=== PATIENT | female | born 1960 | race Caucasian/White ===

== ENCOUNTER 2022-10-03 13:08 | Observation (INO) | payer SELFPAY ==
[2022-10-03] VITALS (10 sets, daily range): BP systolic 131–160; BP diastolic 71–106; PULSE 64–77; RESP 14–18; TEMP 35.7–36.7; O2SAT 97–100; BMI 26.4
--- NOTE | 2022-10-03 | AXNB_PTH ---
PATIENT: ALESIA BOLDEN LOC: MS3 U#:[id number] AGE/SX: 62/F ROOM: VA319 RE10/03/[address]: Dr. Ap Gaytan MD : 1960 BED: 1 DIS: 10/04/2022 SPEC #: [id number] RECD: 10/03/22 12:01 STATUS: LUCAS TAMIA #: [id number] HOANG: 10/03/22 00:[address]: Ap Gaytan DEPT: SURGICAL PATHOLOGY RECD BY: Alena Melgoza ENTERED: 10/03/22 13:00 SP TYPE: AX NODE BX OTHR DR: Elizabeth Jack, SOL[employer]ATION [employer]W SUPERVISOR-C Tissues: A - Axillary lymph node, NOS B - Right breast, NOS Procedures: Frozen Section (charge) Frozen Section [facility] ([facility]) Surgery Specimen Level V Surgery Specimen Level HEADER OPERATION: Simple mastectomy with sentinel lymph node biopsy PRE-OP DIAGNOSIS: Right breast cancer TISSUE SUBMITTED: A ? [place] lymph nodes, frozen section, B ? Right breast, long suture ? lateral, short suture ? superior and extra tissue FROZEN SECTION DIAGNOSIS A. Right sentinel lymph nodes, biopsy: Eight out of eight lymph nodes, negative for metastatic carcinoma. SJ:jeimy 10/03/2022 Case has been reviewed in consultation with Dr. Borja who concurs with the above diagnosis. IDC:AM MICROSCOPIC DIAGNOSIS A. Right sentinel lymph nodes, biopsy: Eight out of eight lymph nodes, negative for metastatic carcinoma. See comment. B. Right breast, mastectomy with additional lymph node dissection: Invasive ductal carcinoma, multifocal (x6). Two out of two lymph nodes, negative for metastatic carcinoma. See cancer summary in the comment section. SJ:jeimy 10/10/2022 COMMENT A & B. The lymph nodes are negative for metastatic carcinoma on multiple H & E levels and immunohisto-chemical stains for cytokeratins ([id number]). B. BREAST CANCER SUMMARY Procedure ? total mastectomy Specimen laterality - right Tumor site ? central portion Tumor size ? Size of largest metastatic carcinoma 3.0 x 3.0 x 1.2 cm Histologic type ? Invasive ductal carcinoma with focal lobular features. Histologic grade (Duran grade): Glandular/tubular differentiation score - 3 Nuclear pleomorphism score - 2 Mitotic count score - 1 Overall grade - grade 2 (score of 6) Tumor focality ? multiple foci of invasive carcinoma. All tumors show similar morphologic features. Number of foci ? 6 including largest tumor Size of individual foci ? largest measuring 3.0 x 3.0 x 1.2 cm Second largest - 2.5 x 1.5 x 1.5 cm Third mass - 0.8 cm in greatest dimension. Fourth mass - 0.6 cm in greatest dimension. Fifth mass - 0.4 cm in greatest dimension. Six mass (block 15), indurated and fibrous area measures 1.0 x 0.5 cm (measured microscopically). Frequent perineural invasion is noted adjacent to the larger two tumor masses. Ductal carcinoma in situ - present Negative for extensive intraductal component (EIC). Size (extent) of DCIS ? DCIS comprise <5% of total tumor volume. Number of blocks with DCIS - ~7 Number of blocks examined ? 20 Architectural pattern ? solid Nuclear grade ? 2 Necrosis ? not identified Lobular carcinoma in situ ? present Lobular carcinoma in situ is noted adjacent to the foci of invasive ductal carcinoma. Tumor extension: Skin ? skin is present and uninvolved. Nipple ? DCIS does not involve nipple epidermis. Skeletal muscle ? no skeletal muscle present. Margins - The largest tumor is 0.2 cm away from the closest inferior margin. Regional lymph nodes: Total number of lymph nodes examined - 10 Number of sentinel lymph nodes examined - 8 Number of lymph nodes with macrometastases, micrometastases or isolated tumor cells - 0 Treatment effect - no known presurgical therapy. Lymphvascular invasion ? not identified Dermal lymphvascular invasion - not identified Distant metastasis ? not applicable Additional Pathologic Findings ? - Extensive atypical lobular hyperplasia ( noted adjacent to the invasive carcinoma foci). - Fibrocystic changes and intraductal hyperplasia without atypia. - Fibroadenoma (0.4 cm in greatest dimension). - A benign glandular inclusion cyst adjacent to the large lymph node in the lateral portion of the mastectomy specimen (B), consistent with apocrine hidrocystoma. Ancillary Studies: Previously performed at [facility] ([id number]), right breast at 8-9 o?clock Z3 mass. ER: Positive (95%, strong intensity) UT: Positive (60%, strong intensity) [id number]: Pending [id number]: Pending Right breast, 12 o?clock Z3 mass ER: Positive (100%, strong intensity) UT: Positive (85%, strong intensity) [id number]: Pending [id number]: Pending Microcalcifications ? Present in DCIS and non-neoplastic tissue. Clinical History - Please make reference to previous specimen from [facility] ([id number]), right breast, 8-9 o?clock Z3 mass, ultrasound-guided core needle biopsy with diagnosis of ?invasive ductal carcinoma with lobular features, grade 2 and ductal carcinoma in situ? and right breast, 12 o?clock Z3 mass, ultrasound-guided core needle biopsy with diagnosis of ?invasive ductal carcinoma, grade 1? and right axilla, inferior lymph node, ultrasound-guided core needle biopsy with diagnosis of ?lymph node tissue, negative for carcinoma.? PATHOLOGIC STAGE: pT2(m) pN0 pMx Immunohistochemistry ([id number]) supports the diagnosis of invasive ductal carcinoma, ductal carcinoma in situ, lobular carcinoma in situ and atypical lobular hyperplasia. The above summary is in compliance with [employer] [place] Pathology (CAP) Cancer Protocols Checklist and [place] Joint Committee on Cancer (AJCC), Staging Manual, 8th Ed. B. Immunohistochemistry ([id number]) supports the diagnosis of invasive ductal carcinoma, ductal carcinoma in situ and lobular carcinoma in situ and atypical lobular hyperplasia. This case is discussed with Dr. Gaytan on 10/10/22. Case has been reviewed in consultation with Dr. Borja who concurs with the above diagnosis. IDC:AM MICROSCOPIC DESCRIPTION Slides are reviewed. GROSS DESCRIPTION A - Received fresh for frozen section diagnosis labeled with the patient's name is a specimen designated sentinel lymph nodes. The specimen consists of a piece of adipose tissue containing multiple nodules consistent with lymph nodes. Eight lymph nodes are identified measuring 0.5 to 2.5 cm in greatest dimension. The lymph nodes are submitted in entirety for frozen section diagnosis as follows: 1 - three lymph nodes, 2 - one bisected lymph node, 3 - three lymph nodes, 4 & 5 - one bisected lymph node, largest lymph node. / SJ: 10/03/2022 B - Received in fixative is one container labeled with the patient's name and designated right breast, long suture - lateral, short suture - superior and extra tissue. The specimen consists of a mastectomy specimen consisting of breast tissue with overlying skin ellipse. The breast tissue measures 22.0 x 16.0 x 4.0 cm. The overlying skin ellipse measures 19.0 x 4.5 cm. The nipple measures up to 1.2 cm in greatest dimension. Also present in the container are two pieces of skin with underlying breast tissue. The first piece, skin measures 16.5 x 1.5 cm and underlying tissue measures 15.5 x 3.5 x 1.0 cm. The second piece, the skin measures 5.5 x 0.5 cm and underlying tissue measures 8.0 x 4.0 x 1.0 cm. The specimen is inked as follows: posterior - black, superior - blue, inferior - green, medial - red and lateral - orange. More dictation will follow after fixation. / SJ: 10/03/2022 Serial sections reveal five indurated masses. The largest mass present in the lower central portion measures 3.0 x 3.0 x 1.2 cm. This mass is 0.2 cm away from the closest inferior margin. The next closest margin from this tumor is the posterior margin which is 1.0 cm away. A second mass is present close more centrally and measures 2.5 x 1.5 x 1.5 cm. This mass is 1.0 cm away from the closest posterior margin. A third mass measures 0.8 cm in greatest dimension and present in the same vicinity of the other two tumors. A fourth mass measures 0.6 cm in greatest dimension. The fifth tumor mass measures 0.4 cm in greatest dimension. Sections of the rest of the breast tissue reveal yellow adipose cut surfaces with fibrous areas. A focal indurated and fibrous suspicious area is also noted. Sections of the lateral portion of breast reveal an ovoid nodule, a lymph node, measuring 1.5 cm in greatest dimension. Barrel Raiser Helper sections are submitted in 20 cassettes as follows: 1??nipple, entire submitted, 2 - perpendicular medial, lateral and superior margins, 3 - perpendicular posterior margin and tumor with closest inferior margin, 4-7 - tumor #1, 8-11 - tumor #2, 12 - tumor #3 bisected, 13 - tumor #4 bisected, 14 - tumor #5, 15 - indurated and fibrous area, 16-18 - Barrel Raiser Helper sections from the other area, 19??one possible lymph node, 20 - one bisected lymph node. Sections are submitted after additional fixation. / SJ:rg 10/04/2022 TC:0 CPT: 52449, 20962, 58145, 95996 x4 ADDENDUM ADDENDUM ADDENDUM ADDENDUM ADDENDUM ADDENDUM ADDENDUM ADDENDUM 11/07/2022 10:12 ADDENDUM 11/07/2022 10:12 ADDENDUM 11/07/2022 10:12 ADDENDUM 11/07/2022 10:12 ADDENDUM 11/07/2022 10:12 An order for Oncotype testing was received from Dr. Luciano. This necessitated case review, block and slide selection by pathologist at [facility]. Breast Cancer Recurrence Score = 18 Results of the complete Oncotype testing ([employer] report) are viewable in EMR under: Reports - Pathology - Lab Pathology Report, Scanned.
--- NOTE | 2022-10-03 | IMM_PTH ---
PATIENT: ALESIA BOLDEN LOC: MS3 U#:[id number] AGE/SX: 62/F ROOM: MS319 RE10/03/[address]: Dr. Ap Gaytan MD : 1960 BED: 1 DIS: 10/04/2022 SPEC #: [id number] RECD: 10/06/22 13:48 STATUS: LUCAS CHESTERИван #: [id number] HOANG: 10/03/22 00:[address]: Ap Gaytan DEPT: IMMUNOHISTOCHEMISTRY RECD BY: Alena Melgoza ENTERED: 10/06/22 13:51 SP TYPE: IMMUNO OTHR DR: Elizabeth Jack, POT PUNCHER-C Tissues: A - Axillary lymph node, NOS B - Right breast, NOS Procedures: CALPONIN-1 (add) CK7 (add) CK8 (add) E-CAD (add) Pankeratin (initial) Pankeratin (add) P40 (add) PHYSICIAN & [address] [address] SPECIMEN INFORMATION: Tissue Source: A ? [place] lymph nodes, B ? Right breast Clinical Info: Right breast cancer Specimen Number: [id number] A1-A5, B6, B11-B15, B19 & B20 CPT code: 30775 x2, 94733 x36 METHODOLOGY: Deparaffinized sections of prefer/formalin-fixed tissue or PAP/DQ stained slides are incubated with monoclonal/polyclonal antibodies/oligonucleotide probes. Localization is made via biotin free immunoperoxidase method. Appropriate controls are performed and reacted as expected. Results on target cell population are indicated in the following table: RESULTS: ANTIBODY / CLONE RESULT Block A1 AE1-3 (AE1/AE3/PCK26) negative CK7 (OV-TL12/30) negative Block A2 AE1-3 (AE1/AE3/PCK26) negative CK7 (OV-TL12/30) negative Block A3 AE1-3 (AE1/AE3/PCK26) negative CK7 (OV-TL12/30) negative Block A4 AE1-3 (AE1/AE3/PCK26) negative CK7 (OV-TL12/30) negative Block A5 AE1-3 (AE1/AE3/PCK26) negative CK7 (OV-TL12/30) negative Block B6 Calponin-1 (RQ714Y) negative * P40 (BC28) negative * E-Cad (ECH-6) positive CK8 (82nygnB88) positive Block B11 Calponin-1 (UY323C) negative * P40 (BC28) negative * E-Cad (ECH-6) positive * CK8 (37tmepK73) positive * Block B12 Calponin-1 (VK630S) negative, * P40 (BC28) negative * E-Cad (ECH-6) positive CK8 (09yqcbK33) positive Block B13 Calponin-1 (GV251C) positive * P40 (BC28) negative * E-Cad (ECH-6) positive CK8 (07umbmM09) positve Block B14 Calponin-1 (BA753E) negative * P40 (BC28) negative * E-Cad (ECH-6) positive CK8 (15jsoaN42) positive Block B15 Calponin-1 (VT136Z) negative * P40 (BC28) negative * E-Cad (ECH-6) positive CK8 (02qwtlP26) positive Block B19 AE1-3 (AE1/AE3/PCK26) negative CK7 (OV-TL12/30) negative Block B20 AE1-3 (AE1/AE3/PCK26) negative CK7 (OV-TL12/30) negative *?Positive in the area of ductal carcinoma in situ, lobular carcinoma in situ and atypical lobular hyperplasia. Negative in the area of lobular carcinoma in situ and atypical lobular hyperplasia. These tests were developed and their performance characteristics determined by [facility]. They may not have been cleared or approved by the U.S. Food and Drug Administration. The FDA has determined that such clearance or approval is not necessary. The above immunohistochemical/dualISH markers are ordered and reviewed by the Pathologist. INTERPRETATION: A. Right sentinel lymph nodes, biopsy: Eight out of eight lymph nodes, negative for metastatic carcinoma. B. Right breast, mastectomy: Invasive ductal carcinoma. Ductal carcinoma in situ. Lobular carcinoma in situ. Atypical lobular hyperplasia. Two out of two lymph nodes, negative for metastatic carcinoma. SJ:jeimy 10/10/2022
--- NOTE | 2022-10-03 09:00 | NM_ITS ---
PROCEDURE: NUCLEAR MEDICINE Injection [place] Node - RIGHT breast(s). REASON FOR EXAM: Female, 62 years old. Right breast cancer. TECHNIQUE: [place] node localization using radionuclide methods of the RIGHT breast(s) was performed following subcutaneous administration of 1.1 mCi of of sulfur colloid Tc-99m. COMPARISON STUDIES : NM - None. CR - Not available for review at this time. CT - Not available for review at this time. MR - Not available for review at this time. US - Not available for review at this time. FINDINGS: 1.1 mCi of technetium labeled sulfur colloid was injected subcutaneously in the right periareolar region for sentinel node imaging. NM/Lymph Node Injection Only IMPRESSION: Subcutaneous injection of sulfur colloid in the periareolar region for sentinel node imaging. Electronically Signed: Willy Raines MD at 10:40 EDT ,
[2022-10-03] MEDS: Lactated Ringers 1,000 ML 15 ML IV (09:40)
[2022-10-03 10:07] LABS: Anion Gap 7 (5-15); BUN 11 mg/dL (7-18); BUN/Creat Ratio 14.3 RATIO (10-20); Calcium,Total 9.5 mg/dL (8.5-10.1); Chloride 105 mmol/L (98-107); Creatinine, Serum 0.77 mg/dL (0.55-1.02); EST Glomerular Filtration Rate 80 mL/min (>60); Est Glom Filt Rate - Afr Amer 97 mL/min (>60); Estimated Creatinine Clearance 78.15 ml/min; Glucose 119 mg/dL (74-106); Potassium 3.7 mmol/L (3.5-5.1); Sodium Level 138 mmol/L (136-145); Thyroid Stim Hormone (TSH) 2.18 uIU/mL (0.358-3.74)
--- NOTE | 2022-10-03 10:46 | PCM.HP.BLA ---
History and Physical Date of Admission: 10/03/22 Intake Vital Signs ? 09/23/2313:13 Weight: 180 lb 8 oz BP 159/96 H Blood Pressure Location Rt brachial Position Sitting Respiration 17 Pulse 83 Pulse Source Monitor Temp 97.5 F L Temp Source Temporal Pulse Oximetry (%) 100 Oxygen Delivery Method room air Intake Visit Reasons:?R BREAST INVASIVE DUCTAL CARCINOMA Chief Complaint: right breast invasive ductal carcinoma Is patient in pain?: No Allergies No Known Allergies Allergy (Verified 09/28/22 12:56) Medications hydrochlorothiazide 12.5 mg capsule 12.5 mg PO DAILY 09/23/22 [History Confirmed 09/28/22] levothyroxine 75 mcg capsule 75 mcg PO DAILY 09/23/22 [History Confirmed 09/28/22] metoprolol succinate 25 mg tablet,extended release 24 hr 12.5 mg PO BID 09/23/22 [History Confirmed 09/28/22] Theramineral 1 tab PO/SL DAILY 09/28/22 [History Confirmed 09/28/22] cholecalciferol (vitamin D3) 25 mcg (1,000 unit) chewable tablet (Vitamin D3) 25 mcg PO DAILY 09/28/22 [History Confirmed 09/28/22] multivit,stress formula-zinc tablet 1 tab PO DAILY 09/28/22 [History Confirmed 09/28/22] omega3-calcium 1,000 mg-D3 800 unit-folic ac 2.5 mg-mv oral combo pack 1 pkg PO DAILY 09/28/22 [History Confirmed 09/28/22] PFSH Medical History?(Updated 09/29/22 @ 13:[address] Ap Gaytan MD) Anxiety Cancer History of edema History of irregular heartbeat Hypertension Non-smoker Thyroid disease Varicose veins of left lower extremity Wears glasses Surgical History?(Updated 09/28/22 @ 13:08 by Mily Germain) History of Family History?(Updated 09/23/22 @ 14:13 by Sarah Cuevas) Mother Breast cancerSister Breast cancer Social History?(Updated 09/23/22 @ 14:13 by Sarah Cuevas) Smoking Status:? Never smoker alcohol intake:? never substance use type:? does not use HPI HPI HPI: Patient is a 62-year-old female with right breast cancer.? Patient had biopsy of 2 breast masses at an outside hospital.? 1 breast mass showed DCIS the other breast mass showed invasive ductal carcinoma. ROS General General: Yes breast cancer; No weight change, appetite, fatigue, colon cancer or weakness HEENT HEENT: No difficulty swallowing, eye injury, eye surgery, swollen glands or hoarseness Endo Endocrine: No thyroid disease, diabetes mellitus, thyroid cancer, Hair loss, heat intolerance or cold intolerance Skin Skin: No rash or changing moles Breast Breast: Yes abnormal mammogram and abnormal US; No left breast lump, right breast lump, nipple discharge, breast pain or breast enlargement Musc Musculoskeletal: No back problems, arthritis, rheumatoid arthritis, gout or joint pain Cardio Cardiovascular: Yes high blood pressure; No murmur, pacemaker, heart disease, atrial fibrillation, heart attack, heart stent, palpitations, shortness of breat with exertion or chest pain Psych Psychiatric: Yes anxiety; No depression or hearing voices Resp Respiratory: No shortness of breath, No sleep apnea, No cough, No COPD, No asthma, No emphysema and No wheezing Gastro Gastrointestinal: No abdominal pain, No nausea or vomiting, No diarrhea, No constipation, No blood in stool, No acid reflux, No hemorrhoids, No ulcers, No gallbladder problem and No black,tarry stools Stephen Hematologic: No blood thinners, No blood disorders, No bleeding, No anemia and No blood clots Neuro Neurologic: No system reviewed and no additional complaints, except as documented, No as per HPI, No abnormal gait, No abnormal hearing, No abnormal movements, No abnormal speech, No behavioral changes, No burning sensations, No confusion, No convulsions, No disequilibrium, No dizziness, No localized weakness, No frequent falls, No headache(s), No lack of coordination, No loss of vision, No memory loss, No numbness, No other visual disturbances, No radicular pain, No restless legs, No sensory deficit, No syncope, No tingling, No tremor(s), No weakness and No other Exam Const General: cooperative Orientation: alert and oriented x3 HENMT Head: normal to inspection Neck Neck: normal visual inspection and full ROM Chest Chest palpation & inspection: normal inspection of the chest Resp Effort & Inspection: normal respiratory effort Auscultation: clear to auscultation bilaterally Cardio Rate: regular rate Rhythm: regular rhythm GI Inspection: non-distended Palpation: soft and nontender Skin General: no rashes or lesions noted Neuro General: patient alert and patient oriented x3 Extrem General: full ROM Psych Appearance: grossly normal Mental Status: mental status grossly normal Assessment and Plan Assessment and Plan (1) Breast cancer, right: ?Status:?Acute ?Qualifiers: ?Breast location:?overlapping sites of breast??Estrogen receptor status:?positive??Patient sex:?female? Qualified Code(s):?C50.811 - Malignant neoplasm of overlapping sites of right female breast; Z17.0 - Estrogen receptor positive status [ER+] ?Plan: Patient has a right breast cancer and right breast DCIS that are in different areas of the breast.? I discussed right mastectomy with the patient.? I also discussed performing axillary lymph node biopsy.? She had axillary lymph node biopsy by ultrasound which was negative.? I discussed the need for possible axillary dissection.? I discussed the risks of the procedure such as bleeding, infection, positive margins or need for further surgery.? I discussed seroma formation and the need for drains.? I discussed hospital stay overnight.? I also discussed the risk of lymphedema if axillary dissection is necessary.? All questions were answered and patient is in agreement to proceed Ap Gaytan MD Pager: [facility] [address] [place] [address] [address] [place] [address] Office: I have examined the patient and the H&P has been reviewed. There are no clinical changes since date of exam.
[2022-10-03] MEDS: Cefazolin 2 GM in 0.9% Normal Saline 100 ML IV (11:08)
[2022-10-03] MEDS: 0.9% Normal Saline (Pres. free 10 ML Vial (11:15)
[2022-10-03] MEDS: Bupivacaine Mpf 0.5% 30 ML VIAL (12:46)
--- NOTE | 2022-10-03 13:03 | OP.PCM_ITS ---
Report of Operation Date of Procedure: 10/03/22 Pre-Operative Diagnosis: Right breast cancer Post-Operative Diagnosis: Same Surgery/Procedure Performed:: 1. Right sentinel lymph node biopsy 2. Right simple mastectomy 3. Injection of blue dye Specimen's removed: 1. Right sentinel lymph nodes 2. Right breast Drains: MUKESH to bulb suction Estimated Blood Loss (mL): 30 Description of Procedure: Patient was brought back to the operating room and general anesthesia was induced. The right breast was prepped and draped and then 5 cc of methylene blue as well as 10 cc of saline were injected behind the nipple in the retroareolar space. The breast was massaged. Next the breast and axilla were prepped and draped in usual sterile fashion. A mastectomy incision was marked around the breast including the entire nipple. The incision was injected with local anesthetic and an incision was made in the medial side of the incision. Flaps were made superiorly and inferiorly and dissection was carried to the right axilla. Nuclear tracer was identified and followed to the axilla. Blue lymph nodes were identified. The 2 lymph nodes that were identified that were blue were sharply excised using scissors and clips. 10-second count was performed there was still radioactive material in the axilla. This was followed and then another large clump of lymph nodes was identified. It was dissected free using clips and scissors and sent for pathology. Frozen pathology revealed 8 lymph nodes were removed and they were all benign with no cancer. There was no further blue or radioactive or palpable lymph nodes in the right axilla. Next the superior flap was raised using electrocautery. This was carried superiorly until the pectoralis muscle was identified. The dissection was carried medially and then inferiorly so that the inferior flap could be raised. Next the breast was taken off of the pectoral fascia including the fascia and the specimen. The specimen was marked and sent for pathology. There was a firm area in the right lower outer quadrant that was very close to the skin. This was taken as close to the skin as possible with as much margin as possible but unsure if this is malignant or not as this was not biopsied preoperatively. The cavity was irrigated and inspected. Hemostasis was obtained using electrocautery. A drain was placed through a small incision in the right lower outer skin. It was looped around the flap and placed up into the axilla. It was sutured to the skin using 3-0 nylon suture. Surgicel powder was sprayed o maria isabel the pectoralis muscle in the axilla and then the flap was closed with interrupted 3-0 Vicryl sutures and a running 4-0 Monocryl suture. Dermabond was applied. Next fluffy dressings and a abdominal binder was placed across the chest. Drain was placed to bulb suction and the patient was awoken and taken to PACU in stable condition and tolerated the procedure well. Admit VTE Documentation VTE Mechan Device Prophylaxis: SCD's
[2022-10-03] MEDS: 0.9% Normal Saline 1,000 ML 60 ML IV (14:42)
[2022-10-03] MEDS: Ondansetron 4 MG/2 ML Vial IV (14:49)
[2022-10-03] MEDS: 0.9% Saline Lock 10 ML Syringe IV ×2 (14:49→16:46)
[2022-10-03] MEDS: Morphine 4 MG/ML Syringe IV (14:51)
[2022-10-03] MEDS: Ketorolac 15 MG/ML Vial IV (16:46)
[2022-10-03] MEDS: Metoprolol(XL)Succ 25 MG Tablet 12.5 MG PO (20:31)
[2022-10-04] MEDS: Ketorolac 15 MG/ML Vial IV (00:49)
[2022-10-04 02:09] VITALS: BP 125/50; PULSE 64; RESP 16; TEMP 36.6; O2SAT 100
[2022-10-04] MEDS: Levothyroxine 75 MCG Tablet PO (05:16)
[2022-10-04] MEDS: 0.9% Normal Saline 1,000 ML 60 ML IV (05:16)
[2022-10-04 05:45] VITALS: BP 111/70; PULSE 65; RESP 16; TEMP 37; O2SAT 98
[2022-10-04 06:41] LABS: Absolute Neutrophil Count 6.1 X10^3/uL (2.0-7.7); Basophil# 0.01 X10^3/uL; Basophil% 0.1 % (0-1); Eosinophil# 0.06 X10^3/uL; Eosinophils% 0.7 % (0-5); Hematocrit 34.9 % (37-47); Hemoglobin 11.8 g/dL (12.0-15.0); Lymphocyte % 19.4 % (19-41); Mean Corp Hgb Conc 33.8 g/dL (32-36); Mean Corpuscular Hgb 29.2 pg (27.0-32.0); Mean Corpuscular Volume 86.4 fL (81-99); Mean Platelet Vol. 9.5 fl (6.2-12.0); Monocyte# 0.88 X10^3/uL; NRBC Flagged by Analyzer 0 % (0-5); Neutrophil # 6.09 X10^3/uL (2.7-7.7); Neutrophil % 69.6 % (47-70); Platelet Count 211 K/mm3 (150-450); RBC Distribution Width CV 13.1 % (11.6-14.6); RBC Distribution Width SD 41.1 fl (35.1-43.9); Red Blood Count 4.04 M/mm3 (4.2-5.4); White Blood Count 8.8 K/mm3 (4.4-11.0)
[2022-10-04 07:06] LABS: Anion Gap 8 (5-15); BUN 9 mg/dL (7-18); BUN/Creat Ratio 13.3 RATIO (10-20); Calcium,Total 8.4 mg/dL (8.5-10.1); Chloride 107 mmol/L (98-107); Creatinine, Serum 0.68 mg/dL (0.55-1.02); EST Glomerular Filtration Rate 93 mL/min (>60); Est Glom Filt Rate - Afr Amer 112 mL/min (>60); Glucose 107 mg/dL (74-106); Potassium 3.4 mmol/L (3.5-5.1); Sodium Level 140 mmol/L (136-145)
[2022-10-04 08:20] VITALS: PULSE 75
[2022-10-04] MEDS: Metoprolol(XL)Succ 25 MG Tablet 12.5 MG PO (08:20)
[2022-10-04] MEDS: hydroCHLOROthiazide 12.5mg 12.5 MG PO (08:21)
[2022-10-04] MEDS: oxyCODONE 5 MG Tablet PO (08:21)
[2022-10-04 08:26] VITALS: BP 111/71; PULSE 75; RESP 16; TEMP 36.9; O2SAT 98
--- NOTE | 2022-10-04 09:56 | DCINST_ITS ---
Discharge Instructions Procedure Breast Surgery Diet Discharge Diet: No restrictions Activity Discharge Activity: May Not Drive (for 2-3 days or while taking narcotic pain medications.) and May Shower Lifting Restrictions: 15 lbs for 2 weeks Dressing / Incision Call your doctor if your incision/area has: Continuous Slow Oozing, Sudden Increased Bleeding, Increased Pain/ Swelling, Increased Redness, Foul Smelling Discharge and Swelling at the incision site Call your doctor if you observe: Fever of 101 or Higher Suture Line Care: Avoid Pulling/Pushing and Avoid Pinching/Bending Cleanse incision/area with: Soap & Water Drain: Suction Additional Dressing/Incision Instructions:: Empty drain as needed and record output. Follow Up Care Please Follow Up With: Ap Gaytan MD When: Please call to schedule 1 week follow up appointment. [phone] Test Results: Test results from this visit will be discussed in further detail at your follow- up appointment, if applicable. Discharge Plan Admission Admit Date/Time: 10/03/22 13:08 Attending Provider: Ap Gaytan Primary Care Provider: Elizabeth Jack Discharge Orders/Prescriptions Prescriptions: New acetaminophen 325 mg Tablet 650 mg PO Q4H PRN PRN (Reason: Pain 1-10 Or Fever) Qty: 0 0RF oxycodone 5 mg Tablet 5 - 10 mg PO Q4H PRN PRN (Reason: Pain Score 4-10) 5 Days Qty: 20 0RF Continued levothyroxine 75 mcg capsule 75 mcg PO DAILY metoprolol succinate 25 mg tablet extended release 24 hr 12.5 mg PO BID hydrochlorothiazide 12.5 mg capsule 12.5 mg PO DAILY [id number]-mvit 13 1,000 mg-800 unit-2.5 mg Combo Pack 1 pkg PO DAILY multivit,stress formula-zinc Tablet 1 tab PO DAILY cholecalciferol (vitamin D3) [Vitamin D3] 25 mcg (1,000 unit) Tablet,Chewable 25 mcg PO DAILY Theramineral 1 tab PO/SL DAILY Referrals / Follow Up: Elizabeth Jack, SWATHI-C [Primary Care Provider] - Disposition Disposition (needs filled in before D/C Order can be placed): Home, Self Care
--- NOTE | 2022-10-04 10:10 | CASEMGMT ---
LILLI CM into pt room, pt lying in bed in no distress. Pt states she feels comfortable and safe returning home. She feels she can empty and record her drain output. Pt denies any homegoing needs at this time.
--- NOTE | 2022-10-04 11:48 | PHA.DC.MC ---
Pharmacy Service has performed discharge medication reconciliation and counseling for this patient. Counseled via telephone. 1. OXYCODONE 5-10MG PO Q4H PRN PAIN 4-10 The patient's discharge medication list was reviewed for discrepancies and discrepancies were resolved. Home Medications hydrochlorothiazide 12.5 mg capsule 12.5 mg PO DAILY 09/23/22 levothyroxine 75 mcg capsule 75 mcg PO DAILY 09/23/22 metoprolol succinate 25 mg tablet,extended release 24 hr 12.5 mg PO BID 09/23/22 Theramineral 1 tab PO/SL DAILY 09/28/22 cholecalciferol (vitamin D3) 25 mcg (1,000 unit) chewable tablet (Vitamin D3) 25 mcg PO DAILY 09/28/22 multivit,stress formula-zinc tablet 1 tab PO DAILY 09/28/22 omega3-calcium 1,000 mg-D3 800 unit-folic ac 2.5 mg-mv oral combo pack 1 pkg PO DAILY 09/28/22 acetaminophen 325 mg tablet 650 mg PO Q4H PRN PRN Pain 1-10 Or Fever #0 tabs 10/04/22 oxycodone 5 mg tablet 5 - 10 mg PO Q4H PRN PRN Pain Score 4-10 5 days #20 tabs 10/04/22 The patient was counseled on the following discharge medications and changes in medications for homegoing were reviewed. The Reason for Use, instructions for use, and potential side effects were reviewed for all new medications. The patient's questions regarding all of their medications were answered. The patient was able to verbally demonstrate an understanding of their discharge medications.
[2022-10-04] MEDS: Acetaminophen 325 MG Tablet 650 MG PO (12:26)
[2022-10-04 12:29] VITALS: BP 124/73; PULSE 66; RESP 18; TEMP 36.8; O2SAT 97
== END 2022-10-04 13:03 | disposition home or self-care (01) ==
LOC: SDC 13:35 → MS3 13:35
PROVIDERS: Anesthesiology; Admitting Provider Surgery; PCP Nurse Practitioner Primary Care; Referring Provider Surgery; Visit Provider Surgery
PROC: (CPT 19307; principal; 2022-10-03 11:45)
DX: C50.811 Malignant neoplasm of overlapping sites of right female breast (principal); Z80.3 Family history of malignant neoplasm of breast; Z79.899 Other long term (current) drug therapy; Z79.890 Hormone replacement therapy; E03.9 Hypothyroidism, unspecified; I10 Essential (primary) hypertension; Z17.0 Estrogen receptor positive status [ER+]
CPT/HCPCS: 19303; 38525; 36415; 38792; 80048; 84443; 85025; 88305; 88307; 88309; 88331; 88332; 88341; 88342; 93005; 96374; 96375; 96376; 99221; A4648; A9541; J7030; J7120; A4216; G0378; J2405; J3490; Q9968

== ENCOUNTER → 2022-10-26 | Outpatient (CLI) | payer SELFPAY ==
--- NOTE | 2022-10-26 09:03 | BD_ITS ---
STUDY: DUAL ENERGY X-RAY ABSORPTIOMETRY / DXA REASON FOR EXAM: Female, 62 years old. SCREENING TECHNIQUE: Bone Mineral Density (BMD) measurements of lumbar spine and bilateral hips were obtained. COMPARISON: None. FINDINGS: Lumbar Spine (L1-L4): g/cm2 (1.099) / T-score (0.5) / Z-score (2.1) Findings are suggestive of normal bone density with a low fracture risk. Left Femur Total: g/cm2 (1.032) / T-score (0.7) / Z-score (1.9) Left Femoral Neck: g/cm2 (0.975) / T-score (1.1) / Z-score (2.6) Right Femur Total: g/cm2 (1.135) / T-score (1.6) / Z-score (2.7) Right Femoral Neck: g/cm2 (1.135) / T-score (2.6) / Z-score (4.0) BD/Dexa Bone Density Study IMPRESSION: The patient is considered normal as outlined below according to World [employer] (WHO) criteria with a low fracture risk. Reference Information: The T-score is the number of standard deviations above or below the standard which is normal for young adults at their peak bone mineral density. The World Health Organization (WHO) interprets the T-scores as follows: Above -1 Normal bone density Between -1 and -2.5 Osteopenia Equal to / or below -2.5 Osteoporosis As a practical clinical guideline, osteopenia may be graded as follows: Mild -1 through -1.5 Moderate -1.6 through -2.0 Severe -2.1 through -2.4 The Z-score is the number of standard deviations above or below age-matched controls. A Z-score of less than -1.5 would be considered abnormal. References: 1. NIH Osteoporosis and Related Bone Diseases www osteo.org 2. International Society for Clinical Densitometry www iscd.org 3. National Osteoporosis Foundation www nof.org Electronically Signed: Willy Raines MD at 12:17 EDT ,
== END | disposition home or self-care (01) ==
LOC: OPBD 08:53
PROVIDERS: PCP Nurse Practitioner Primary Care; Referring Provider Internal Medicine Hematology & Oncology; Visit Provider Internal Medicine Hematology & Oncology
DX: Z78.0 Asymptomatic menopausal state (principal); C50.811 Malignant neoplasm of overlapping sites of right female breast; Z17.0 Estrogen receptor positive status [ER+]
CPT/HCPCS: 77080

== ENCOUNTER → 2023-01-05 | Outpatient (CLI) | payer SELFPAY | END | disposition home or self-care (01) | LOC: LABSPEC 14:39 | PROVIDERS: PCP Nurse Practitioner Primary Care; Referring Provider Physician Assistant; Visit Provider Physician Assistant | DX: Z90.11 Acquired absence of right breast and nipple (principal) | CPT/HCPCS: 87070; 87075; 87205 ==